=== PATIENT | male | born 1980 | race Caucasian/White ===

== ENCOUNTER 2018-10-24 21:20 | Emergency (ER) | payer OTHER, SELFPAY ==
[2018-10-24 21:21] VITALS: BP 143/73; PULSE 111; RESP 20; TEMP 37.6; O2SAT 91; BMI 31.9
--- NOTE | 2018-10-24 21:35 | RAD_ITS ---
STUDY: X-RAY CHEST REASON FOR EXAM: Male, 38 years old. Cough and fever. TECHNIQUE: PA and lateral views of the chest. COMPARISON: April 28, 2015. FINDINGS: The lungs are expanded. There is heterogeneous left-sided airspace consolidation bronchovascular markings are prominent in right lung. There is no demonstrated pleural abnormality. There is mild cardiac enlargement. Normal mediastinum and singh. There is prominence of the pulmonary hilar arteries without peripheral pulmonary vascular congestion. There is atherosclerotic calcification of the aortic arch with tortuosity. Normal visualized thoracic spine. Normal visualized ribs, clavicles, and shoulders. There is no demonstrated abnormality of the visualized soft tissue structures of the upper abdomen. RAD/Chest PA and Lateral IMPRESSION: Heterogeneous left-sided airspace consolidation could represent pneumonia. Electronically Signed: Violet Townsend MD at 22:00 EDT , Service support ,
--- NOTE | 2018-10-24 21:59 | ED.VISSUMM ---
- ER Visit Summary Date of Service: 10/24/18 Chief Complaint: Cough and fever History of Present Illness: The patient is a 38 M past medical history of prior pneumonia 2 years ago. Patient states that 6-day history of cough, fever and body aches. Cough is primarily nonproductive at times he does have white phlegm. No significant chest pain. He denies any history of DVT or PE. No leg pain or swelling. No hemoptysis. No travel or surgery. No recent hospitalization. Physical Examination: Vital signs are stable. He is afebrile. His pulse ox is 91% but he is in no distress. Temperature is 99.6. He does not look septic or toxic. He is resting comfortably in bed. HEENT exam unremarkable. Moist weeks membranes. Neck nontender no JVD. No lymphadenopathy. Lungs coarse breath sounds primarily in the left lower lung. No rales or rhonchi. Equal symmetrical. Heart regular rhythm rate about 100. No murmur. Abdomen soft and nontender. Normal bowel sounds no peritoneal signs. Patient is moving all 4 extremities. Calves are nontender without edema. No cords. Neurologically is awake and alert with no focal motor deficits. Test Results: AP and lateral 2 view chest x-ray shows a left lower lobe pneumonia. I did go over the chest x-ray with the patient. Emergency Department Course and Treatment: Discussed with patient he wants to be discharged home. The last time he had pneumonia they treated him with Levaquin he said it worked very well and would prefer to be placed back on that antibiotic. Treatment Plan: Levaquin first dose in ER and then x6 more days. Plenty of fluids and rest. Tylenol. Off work next 2 days. Return if feeling worse. Disposition: Discharge Impression: Left lower lobe community-acquired pneumonia This note was generated with [employer] dictation software. It may contain incorrect words, spelling, and punctuation that were not noted in review of the chart prior to signing ED Disposition - Plan for ED Patient: Referrals: Care Physician,No Primary [Primary Care Provider] -
--- NOTE | 2018-10-24 22:01 | ED.DEP ---
ED Disposition - Plan for ED Patient: Disposition: Home or Assisted Living Instructions: ED Pneumonia Adult Prescriptions: Levofloxacin [Levaquin] 750 mg PO DAILY 6 Days #7 tab Referrals: Erik Barrera MD [STAFF PHYSICIAN] - 3-5 Days if not improving Additional Instructions: Plenty of fluids and rest. Off work the next 2 days. Alternate Tylenol Motrin for fever. The antibiotic Levaquin 1 pill/day for the next 6 days starting tomorrow. Return to the ER if you are feeling worse.
[2018-10-24] MEDS: levoFLOXacin 750 MG Tablet PO (22:07)
[2018-10-24 22:15] VITALS: O2SAT 91
[2018-10-24 22:16] VITALS: PULSE 103; RESP 18
== END 2018-10-24 22:16 | disposition home or self-care (01) ==
PROVIDERS: Emergency Provider Emergency Medicine
DX: J18.9 Pneumonia, unspecified organism (principal); Z72.0 Tobacco use; Z87.01 Personal history of pneumonia (recurrent)
CPT/HCPCS: 71046; 99283